=== PATIENT | male | born 1965 | race Caucasian/White ===

== ENCOUNTER 2017-08-02 17:53 | Emergency (ER) | payer OTHER ==
[2017-08-02 18:42] VITALS: BP 147/80; PULSE 68; RESP 24; TEMP 98.6; O2SAT 98
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
[2017-08-03 02:28] VITALS: BP 156/79; PULSE 66; RESP 16; O2SAT 97
[2017-08-03 06:39] VITALS: BP 150/85; PULSE 72; RESP 18; O2SAT 98
[2017-08-03 10:29] VITALS: BP 126/84; PULSE 79; RESP 16; TEMP 97.8; O2SAT 100
--- NOTE | 2017-08-03 10:50 | PD ---
Physical Exam Date Seen by Provider: Aug 03, 2017 Time Seen by Provider: 10:49 Narrative 52-year-old male previously Laura acted for suicidal ideation with question of ingestion of 5 Flexeril, was medically cleared for psychiatric evaluation. Patient was seen by the psychiatric staff and felt to be psychiatrically stable for discharge at this time. Patient remains medically stable for discharge at this time. Follow-up will be based on psychiatric note. Data Data Last Documented VS Vital Signs Date Time Temp Pulse Resp B/P (MAP) Pulse Ox O2 Delivery O2 Flow Rate FiO2 08/03/17 10:29 97.8 79 16 126/84 (98) 100 Room Air Orders Orders Psych Screen (08/02/17 19:09) Diet Regular Basic (08/03/17 Breakfast) MDM Medical Record Reviewed: Yes Supervised Visit with MELINA: Yes Narrative Course 52-year-old male previously Laura acted for suicidal ideation with question of ingestion of 5 Flexeril, was medically cleared for psychiatric evaluation. Patient was seen by the psychiatric staff and felt to be psychiatrically stable for discharge at this time. Patient remains medically stable for discharge at this time. Follow-up will be based on psychiatric note. Patient Instructions: General Instructions Scripts No Active Prescriptions or Reported Meds Disposition: 01 DISCHARGE HOME Condition: Stable Vince Jose Aug 03, 2017 10:50
--- NOTE | 2017-08-03 16:10 | PD.PSY.CON ---
Provisional Diagnosis Admission Date [place] I. Alcohol-induced mood disorder, alcohol use disorder [place] II. Deferred History of Present Illness Service Psychiatry Consult Requested By Medical team Reason for Consult On the Sanchez act Primary Care Physician No Primary Care Physician HPI The patient was seen this morning at 9:30 AM The patient is a 52-year-old man, domiciled with a friend in [facility] [place], , parts counter sales person employed, psychiatric history of alcohol use disorder, who presents to the emergency room under a Sanchez act initiated by physician at [facility]. Patient presented to [facility] and after admitting to taking 5 Flexeril pills and drinking 3 beers. States he did it because the stress was too great in his life and he thought it would help him relax. He started to feel symptomatic and called 911. He was brought to the ED and had a complete workup. Patient was medically cleared and transferred to [place] to be seen by psychiatrist. Patient denies suicidal homicidal ideation. States he has a lot of stressors and is feeling depressed. He admits to drinking alcohol and smoking cigarettes. Denies any illicit drug use. Only reports history of asthma for which he takes albuterol. Denies any physical complaints at this time. On psychiatric evaluation the patient reports that he took the Flexeril with alcohol just to feel better and not to commit suicide. 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 He is oriented 3, with no attention deficits. Past Family Social History Coded Allergies: aspirin (Unverified Allergy, Severe, cant breathe, 09/28/16) No Active Prescriptions or Reported Meds Physical Exam Vital Signs Vital Signs Date Time Temp Pulse Resp B/P (MAP) Pulse Ox O2 Delivery O2 Flow Rate FiO2 08/03/17 11:52 08/03/17 10:29 97.8 79 16 100 Room Air Mental Status Examination Appearance: Appropriate Consciousness: Alert Orientation: x4 Motor Activity: Normal gait Speech: Unremarkable Language: Adequate Fund of Knowledge: Adequate Attention and Concentration: Adequate Memory: Unremarkable Mood: Appropriate Affect: Appropriate Thought Process & Associations: Intact Thought Content: Appropriate Hallucination Type: None Delusion Type: None Suicidal Ideation: No Suicidal Plan: No Suicidal Intention: No Homicidal Ideation: No Homicidal Plan: No Homicidal Intention: No Insight: Adequate Judgment: Adequate Assessment & Plan Problem List: (1) Alcohol abuse with alcohol-induced mood disorder ICD Codes: F10.14 - Alcohol abuse with alcohol-induced mood disorder Assessment & Plan: The patient does not meet criteria for involuntary psychiatric admission, he is now clinically sober. Denies suicidal enemas ideation, denies peaceful and auditory hallucinations. Sanchez act will be lifted Assessment & Plan Estimated LOS: Kyle Weems MD Aug 03, 2017 16:10
== END 2017-08-03 11:54 | disposition home or self-care (01) ==
LOC: NEPJ 17:53
DX: T48.1X2A Poisoning by skeletal muscle relaxants [neuromuscular blocking agents], intentional self-harm, initial encounter (principal); F10.94 Alcohol use, unspecified with alcohol-induced mood disorder; F12.90 Cannabis use, unspecified, uncomplicated; F41.9 Anxiety disorder, unspecified; F17.200 Nicotine dependence, unspecified, uncomplicated; Z63.5 Disruption of family by separation and divorce; Z88.6 Allergy status to analgesic agent
CPT/HCPCS: 99284